=== PATIENT | female | born 1960 | race Caucasian/White ===

== ENCOUNTER → 2021-02-01 08:10 | Outpatient (BNVA) | payer MEDICARE, SELFPAY | PROVIDERS: PCP Family Medicine; Visit Provider Nurse Practitioner | DX: I99.8 Other disorder of circulatory system (principal); Z86.73 Personal history of transient ischemic attack (TIA), and cerebral infarction without residual deficits; Z87.891 Personal history of nicotine dependence | CPT/HCPCS: 99204; 99205 ==